=== PATIENT | female | born 1955 ===

== ENCOUNTER 2025-03-20 09:47 | Day surgery (SDC) | payer OTHER ==
[~2025-03-20] VITALS: Ht 160 cm; Wt 65.7 kg
[~2025-03-20 09:47] MED LIST: Balanced Salt Epinephrine Irrigation Solution 500 mL IR SCH; Moxifloxacin HCL 0.5 MG/0.1 ML 0.4MLSYR LEFTEYE SCH; Moxifloxacin HCL 0.5 MG/0.1 ML 0.4MLSYR RIGHTEYE SCH; Ondansetron 4 MG SoluTab MM PRN; PHENYLEPHRINE\\TROPICAMIDE\\TETRACAINE OPHTHALMIC DILATING SOLN LEFTEYE PRN; PHENYLEPHRINE\\TROPICAMIDE\\TETRACAINE OPHTHALMIC DILATING SOLN RIGHTEYE PRN; Povidone-Iodine 450 DROP/30 ML Solution LEFTEYE SCH; Povidone-Iodine 450 DROP/30 ML Solution ONE; Tetracaine HCl/Pf 0.5% Opth Soln 4 ml ONE; Triamcinolone Inj Susp 40 MG / ML 1ML Vial INJ SCH; Triamcinolone Inj Susp 40 MG / ML 1ML Vial ONE
--- NOTE | 2025-03-20 11:35 | NUR ---
03/20/25 1135 Chloe Gambino REASSESS ANXIETY, PT STATES DECREASED FROM 5/10 TO 2/10. O2 SATURATIONS 98% ON RA.
[2025-03-20] MEDS ORDERED: Tetracaine HCl 0.5% Opth Soln 15 ml RIGHTEYE ONE (11:39)
--- NOTE | 2025-03-20 11:43 | NUR ---
03/20/25 1143 Ilana Kinney N 168/70 91 98% 10L BLOW BY O2 20
[2025-03-20 12:01] VITALS: BP 158/60
== END 2025-03-20 12:22 | disposition home or self-care (01) ==
LOC: ORSCSDS 09:47
PROVIDERS: Ophthalmology
PROC: 08RJ3JZ Replacement of Right Lens with Synthetic Substitute, Percutaneous Approach (ICD-10-PCS; principal; 2025-03-20 11:30)
DX: H25.813 Combined forms of age-related cataract, bilateral (principal)
CPT/HCPCS: A9270; J3301; V2632

== ENCOUNTER 2025-03-27 09:02 | Day surgery (SDC) | payer OTHER ==
[~2025-03-27] VITALS: Ht 160 cm; Wt 64.0 kg
[~2025-03-27 09:02] MED LIST changes: -Moxifloxacin HCL 0.5 MG/0.1 ML 0.4MLSYR RIGHTEYE SCH; -PHENYLEPHRINE\\TROPICAMIDE\\TETRACAINE OPHTHALMIC DILATING SOLN RIGHTEYE PRN
--- NOTE | 2025-03-27 10:03 | NUR ---
03/27/25 1003 BREANA SINGH PT HAD VERY HARD TIME GETTING BP IN DIFFERENT LOCATION FOREARM AND LOWER LEG/ DR DMOINGUEZ SAID TO HOLD OFF ONN PO MEDS AND EYE DILITATION MEDS UNTIL HE SPOKE W/ HER
[2025-03-27] MEDS ORDERED: IBUP200 PO (10:04)
[2025-03-27] MEDS ORDERED: CENTRUM SILVER1 EAC2 PO (10:04)
--- NOTE | 2025-03-27 10:33 | NUR ---
03/27/25 1033 Aida Rojas HR: 85 BP: 153/79 SPO2: 95% ON BLOW BY O2
[2025-03-27 10:52] VITALS: BP 159/78
== END 2025-03-27 11:10 | disposition home or self-care (01) ==
LOC: ORSCSDS 09:02
PROVIDERS: Ophthalmology
PROC: 08RK3JZ Replacement of Left Lens with Synthetic Substitute, Percutaneous Approach (ICD-10-PCS; principal; 2025-03-27 10:30)
DX: H25.812 Combined forms of age-related cataract, left eye (principal); Z96.1 Presence of intraocular lens
CPT/HCPCS: A9270; J3301; V2632